=== PATIENT | male | born 1990 | race Two or more races ===

== ENCOUNTER 2024-09-16 00:02 | Observation (INO) | payer MEDICAID, SELFPAY ==
[2024-09-16] VITALS (9 sets, daily range): BP systolic 118–158; BP diastolic 77–105; PULSE 69–115; RESP 13–22; TEMP 36.6–37.1; O2SAT 93–100; BMI 29.7; BMI 27.4
--- NOTE | 2024-09-16 00:26 | PC.NURSE ---
0025 called poison control. Pt should be monitored for 12 hrs. most common effect is GI upset. others are prolonged QCT and sz.. aware..
--- NOTE | 2024-09-16 00:45 | PC.NURSE ---
PATIENT STATES TAKING 20-30 PILLS OF LEXAPRO 20MG PATIENT STATES HE WAS DARED BY FRIENDS TO TAKE PILLS AND THEY PAID HIM $100 DENIES SI AT THIS TIME
--- NOTE | 2024-09-16 01:26 | EKG_ITS ---
[facility] Test Date: 2024-09-16 Pat Name: ESTHER SHAIKH Department: Room: - Gender: Male Manager Of Project Management: PATSY : 1990 Requested By: Rudy Gant Order Number: [id number] Reading MD: Rudy Gant Measurements Intervals [place] Rate: 84 P: 48 UT: 159 QRS: -31 QRSD: 109 T: 42 QT: 408 QTc: 485 Interpretive Statements SINUS RHYTHM MARKED LEFT AXIS DEVIATION NONSPECIFIC T-WAVE ABNORMALITY No previous ECG available for comparison /[id number]
--- NOTE | 2024-09-16 01:34 | PD.EDOVER ---
ED Overdose RME/HPI General Chief Complaint: Overdose Stated Complaint: OD on 30 20 mg lexapro Time Seen by Provider: 09/16/24 00:17 Arrival date/time: 09/16/24 00:02 RME / HPI RME / HPI Narrative: Dr. Thorpe?s Main ED Evaluation: 34yo male presents to the ED for a chief complaint of an overdose. Patient states he took 15 tablets of Lexapro 20mg at 2300 after he was dared to for $100. Patient states he took the tablets after he looked up side effects, stating they didn't look too bad . He is actively vomiting at the time of my evaluation. He states the medication he took was his own prescription. He denies any alcohol use. Denies any SI. No known allergies. Related Data Previous Rx's ?Medication ?Instructions ?Recorded Sulfamethoxazole/Trimethoprim DS * 1 tab PO BID #20 tabs 06/01/17 (BACTRIM DS *) naproxen 375 mg tablet 375 mg PO BIDWM PRN pain #25 tabs 06/01/17 Allergies Allergy/AdvReac Type Severity Reaction Status Date / Time No Known Allergies Allergy Verified 09/16/24 00:11 Review of Systems Review of Systems Systems Reviewed: All systems reviewed, normal except as documented Past Medical History Past Medical History CARDIAC: Negative Congestive Heart Failure RESPIRATORY: Negative Chronic Obstructive Pulmonary Disease (COPD) GENITOURINARY: Negative Renal Disease ENDOCRINE: Negative Diabetes Mellitus Type 1 or Diabetes Mellitus Type 2 PSYCHO/SOCIAL: Positive Bipolar Disorder Social History SMOKING STATUS: Never smoker ED Exam Narrative Physical exam: GENERAL APPEARANCE: alert and oriented x 4, well-developed, well-nourished, actively vomiting, no acute distress VITALS: All vitals were reviewed and the pulse ox is 97% on room air, which is normal according to my interpretation. HEENT: Normocephalic, atraumatic; pupils equal, round, reactive to light; EOMI; mucous membranes pink, moist; oropharynx clear NECK: Supple LUNGS: CTABL; no wheezes, no rales, no rhonchi HEART: Tachycardic, regular rhythm; normal S1, S2; no murmurs ABDOMEN: non distended; normal BS; soft, no tenderness, no guarding, no rebound; no masses, no organomegaly, no hernia BACK: no CVA tenderness EXTREMITIES: atraumatic; no edema; hyperreflexia, clonus NEUROLOGIC: awake; alert and oriented x4; cranial nerves II-XII grossly intact; no focal sensory or motor deficits PSYCHIATRIC: slightly agitated mood and affect SKIN: warm, clammy, flushed; no rashes Course Quality Measures none Orders Category Date Time Status Bedside Blood Glucose NOW Care 09/16/24 01:26 Active University Lecturer NOW Care 09/16/24 01:27 Active Continuous Pulse Oximetry NOW Care 09/16/24 01:26 Completed EKG (ED ONLY) *Do not use* NOW Care 09/16/24 01:27 Completed Insert IV NOW Care 09/16/24 01:27 Active NPO NOW Care 09/16/24 01:26 Active One-to-one observation NOW Care 09/16/24 01:26 Active Suicide precautions NOW Care 09/16/24 01:26 Active EKG (ED Only) Stat Exams 09/16/24 01:26 Ordered Acetaminophen Stat Lab 09/16/24 01:36 Completed Alcohol, Blood Medical Stat Lab 09/16/24 01:36 Completed Alcohol, Urine Stat Lab 09/16/24 02:05 Completed CBC Stat Lab 09/16/24 01:36 Completed Comprehensive Metabolic Panel Stat Lab 09/16/24 01:36 Completed Drug Screen,Urine Stat Lab 09/16/24 02:05 Completed Salicylate Stat Lab 09/16/24 01:36 Completed Thyroid Stimulating Hormone Stat Lab 09/16/24 01:36 Completed Urinalysis Stat Lab 09/16/24 02:05 Completed Urinalysis, C/S if Indicated Stat Lab 09/16/24 02:05 Completed LORazepam [Ativan Inj] Med 09/16/24 01:34 Discontinued 2 mg IVP X1 ONE Magnesium Sulfate 2 GM Ivpb [Magnesium Sulfate Ivpb] Med 09/16/24 01:29 Discontinued 2 gm in 50 ml IV X1 Sodium Chloride 0.9% 1000 ml [Ns] 1,000 ml Med 09/16/24 01:26 Discontinued IV 999 mls/hr Sodium Chloride 0.9% 1000 ml [Ns] 1,000 ml Med 09/16/24 01:34 Discontinued IV 999 mls/hr Vital Signs Vital signs: Vital Signs Temperature 98.3 F 09/16/24 00:21 Pulse Rate 115 H 09/16/24 00:21 Respiratory Rate 18 09/16/24 00:21 Blood Pressure 125/82 09/16/24 00:21 Pulse Oximetry (%) 97 09/16/24 00:21 Oxygen Delivery Method Room Air 09/16/24 00:21 Overdose MDM Narrative MDM Narrative:: Scribe Attestation: 09/16/24 - Kylah Santiago am scribing for and in the presence of Dr. Thorpe. Patient data External records reviewed:: [facility] previous records (Per chart review, patient has no relevant previous ED visits.) Clinical information provided by:: patient Social determinants that could affect healthcare access:: substance use Patient has the following chronic illnesses:: bipolar disorder How is presenting disease/condition affected by chronic disease/condition?: uneffected by Evaluation data The following diagnostics were reviewed and interpreted by me:: lab results and EKG tracing(s) Lab and/or radiology exams considered but not ordered:: none Interpretation Summary: CBC is normal, CMP is normal, TSH is normal, UA shows 1+ protein, UDS is positive for methamphetamines, Salicylates are negative, Acetaminophen is negative, Blood Alcohol is negative, according to my interpretation. EKG done at 0034, sinus tachycardia, rate of 121, left axis deviation, generalized ST abnormalities, no STEMI, QTc: 446, QRS: 106, according to my interpretation. Medications / Prescriptions Medications or Prescriptions considered but not ordered:: none Medication administrations:: Medication Administration History Discontinued Medications Sodium Chloride (Ns) 1,000 mls @ 999 mls/hr IV .Q1H1M AMY Stop: 09/16/24 02:26 Last Infusion: 09/16/24 03:00 Dose: Infused Documented By: Admin: 09/16/24 01:59 Dose: 999 mls/hr Documented By: EF Magnesium Sulfate (Magnesium Sulfate Ivpb) 2 gm in 50 mls @ 25 mls/hr IV X1 ONE Stop: 09/16/24 03:28 Last Admin: 09/16/24 02:08 Dose: 25 mls/hr Documented By: EF Sodium Chloride (Ns) 1,000 mls @ 999 mls/hr IV .Q1H1M ONE Stop: 09/16/24 02:34 Last Infusion: 09/16/24 03:01 Dose: Infused Documented By: Admin: 09/16/24 02:00 Dose: 999 mls/hr Documented By: EF Lorazepam (Lorazepam 2 Mg/Ml Vial) 2 mg IVP X1 ONE Stop: 09/16/24 01:35 Last Admin: 09/16/24 03:25 Dose: Not Given Documented By: EF Non-Admin Reason: Patient Asleep see above Consultations Consultation(s) initiated? (list below): Yes Consultation #1 (Physician, Specialty, Details): Discussed case with [Dr. Wong, attending Dr. Solano] from Hospitalist service regarding admission. Discussed patients ED course, exam findings, labs, and radiology results. The Hospitalist [agrees] to accept the patient for admission. Time: 03:30 Diagnosis Overdose Differential Diagnosis: drug overdose and other (methamphetamine overdose, alcohol withdrawal, benzodiazepine withdrawal, serotonin syndrome) Most likely diagnosis given after review of the tests above:: see clinical impression below Admission Indicated Admission indicated?: indicated Admission Request Was there a request for admission?: Yes Admission Attestation Admission request attestation: Discussed case with [] from Hospitalist service regarding admission. Discussed patients ED course, exam findings, labs, and radiology results. The Hospitalist [agrees,declines] to accept the patient for admission. Disposition Plan Disposition Plan: Admit Critical Care Time Critical Care Time Critical Care Time: Yes Total Critical Care Time (min.): 40 Attestation: The high probability of sudden, clinically significant deterioration in the patient?s condition required the highest level of my preparedness to intervene urgently. The services I provided to this patient were to treat and/or prevent clinically significant deterioration. Services included the following: chart data review, reviewing nursing notes and/or old charts, documentation time, clinical consultant collaboration regarding findings and treatment options, medication orders and management, direct patient care, vital sign assessments and ordering, interpreting and reviewing diagnostic studies and lab tests. Aggregate critical care time includes only time during which I was engaged in work directly related to the patient?s care, as described above, whether at bedside or elsewhere in the Emergency Department. It did not include time spent performing other reported procedures or the services of residents, students, nurses or physician assistants. Discharge Plan Plan Patient Disposition: Admit Acute Care w/in Hospital Prescriptions/Referrals Prescriptions/Med Rec: No Action naproxen 375 MG tablet 375 mg PO BIDWM PRN (Reason: pain) Qty: 25 0RF Sulfamethoxazole/Trimethoprim DS * (BACTRIM DS *) 1 TAB tablet 1 tab PO BID Qty: 20 0RF Referrals: Neeraj Haynes MD [Primary Care Provider] - In 1 week Problem List Clinical Impression: Serotonin syndrome, Methamphetamine abuse Patient/Caregiver Discharge Instructions Print Language: Bulgarian Stand Alone Forms: [facility] Award Info., Patient Portal Info Letter
[2024-09-16 01:53] LABS: Basophils % (Auto) 1 % (0-2.5); Eosinophils # (Auto) 0.2 Thou/mm3 (0.0-0.5); Eosinophils % (Auto) 3 % (0-10); Hematocrit 43.8 % (41.0-53.0); Hemoglobin 15.2 g/dL (13.5-16.0); Immature Granulocytes % (Auto) 0 % (0-0); Immature Granulocytes Auto 0.01 Thou/mm3 (0.00-0.00); Lymphocytes # (Auto) 1.7 Thou/mm3 (1.0-4.8); Lymphocytes % (Auto) 21 % (10-50); Mean Corpuscular HGB Conc 34.7 g/dl (31.0-37.0); Mean Corpuscular Hemoglobin 28.7 pg (25.0-35.0); Mean Corpuscular Volume 83 fL (80-100); Monocytes # (Auto) 0.9 Thou/mm3 (0.0-0.8); Monocytes % (Auto) 11 % (0-12); Neutrophils # (Auto) 5.3 Thou/mm3 (1.8-7.7); Neutrophils % (Auto) 65 % (37-80); Nucleated Red Blood Cell % 0 /100 WBC (0); Platelet Count 387 Thou/mm3 (140-440); RDW Standard Deviation 37.4 fL (35.1-43.9); White Blood Count 8.1 Thou/mm3 (3.8-10.6)
[2024-09-16] MEDS: SODIUM CHLORIDE 0.9% 1000 ML 1,000 ML 999 ML IV ×2 (01:59→02:00)
[2024-09-16] MEDS: Magnesium Sulfate 2 GM Ivpb 2 GM/50 ML BAG IV (02:08)
[2024-09-16 02:12] LABS: Collection Type, Urine Clean Catch
[2024-09-16 02:18] LABS: Bilirubin,Urine Negative (Negative); Blood,Urine Negative (Negative); Clarity,Urine Clear (Clear/Hazy); Color,Urine Yellow (Lt Yel-Yel); Culture Indicated,Urine Not Indicated; Glucose, Urine Negative (Negative); Ketones,Urine Negative (Negative); Leukocyte Esterase,Urine Negative (Negative); Nitrite,Urine Negative (Negative); Protein,Urine 1+ (Neg - Trace); RBC,Urine 2 /hpf (0-3); Specific Gravity,Urine 1.034 (1.001-1.035); Squamous Epithelial Cell,Urine < 1 /hpf (0-5); Urobilinogen,Urine Negative mg/dL (0.0-1.0); WBC,Urine 1 /hpf (0-5)
[2024-09-16 02:30] LABS: Alcohol, Urine Negative (Negative); Amphetamine/Methamp Scrn,U Positive (Negative); Barbiturate Screen,Urine Negative (Negative); Benzodiazepines Screen,Urine Negative (Negative); Benzoylecgonine Screen, Ur Negative (Negative); Fentanyl Screen,Urine Negative (Negative); Opiate Screen,Urine Negative (Negative); THC Screen,Urine Negative (Negative)
[2024-09-16 02:31] LABS: Acetaminophen < 2.0 mcg/mL (10.0-20.0); Alanine Aminotransferase 31 U/L (10-49); Albumin, Serum 5.4 gm/dL (3.5-5.0); Albumin/Globulin Ratio 1.8 (1.2-2.2); Alcohol, Blood Medical < 3.0 mg/dL (0-10.0); Alkaline Phosphatase 117 U/L (46-116); Anion Gap 13 (7-16); Aspartate Amino Transferase 31 U/L (0-34); BUN/Creatinine Ratio 17 Ratio (12-20); Bilirubin,Total 0.9 mg/dL (0.3-1.2); Blood Urea Nitrogen 17 mg/dL (9-23); Calcium 10.5 mg/dL (8.3-10.6); Calcium (Corrected) 10.5 mg/dL (8.5-10.1); Carbon Dioxide 24.4 mMol/L (20.0-31.0); Chloride 106 mMol/L (98-107); Estimated Creatinine Clearance 133.1 mL/min (>60); Glucose 100 mg/dL (74-106); Osmolality,Calculated 286 (275-295); Potassium 3.8 mMol/L (3.4-5.1); Salicylate < 3.0 mg/dL; Sodium 143 mMol/L (136-145); Total Protein 8.4 gm/dL (5.7-8.2); eGFR > 60 See Note
--- NOTE | 2024-09-16 04:42 | ESHP_ITS ---
Documentation for date of: 09/16/24 HPI History of Present Illness Chief complaint: Lexapro OD History of present illness: Kaleb Campbell is 34 yr male with PMH of bipolar disorder and meth abuse who presented to ED after ingesting 15-30(?) tablets of Lexapro around 11pm last night. Most history was obtained from chart review as patient was only oriented to self, lethargic, and unable to focuse with bizarre behavior. Per ED, patient's friend offered him 100$ to eat all his Lexapro. Initially he was vomiting at bedside. Poison control was contacted who recommended to observe patient for 12 hrs and reasses mental status. Lorazepam PRN for any seizure like activity or agitation. No seizures have been witnessed as of yet. It is difficult to asses at this time if OD was suicide attempt or if any attempts have been made in the past. Vitals significant for tachycardia 115, hypertension 130/90, non febrile. Labs unremarkable. Utox positive for methamphetamine. Patient received x2 1L bolus NS and Mg 2 gm in ED. visitor services associate has been consulted and patient admitted for observation and management of OD. PMH: as noted above PSH: unknown FamHx: unknown Social: history of meth use Allergies: unknown Meds: Lexapro 20 mg, bupreorphine (med rec pending) Review of Systems Review of Systems ROS Unobtainable: unobtainable due to mental status and unobtainable due to medical condition Exam Vital Signs Temp Pulse Resp BP Pulse Ox O2 Del Method 98.6 F 107 H 19 147/97 H 98 Room Air 09/16/24 01:43 09/16/24 01:43 09/16/24 01:43 09/16/24 01:43 09/16/24 01:43 09/16/24 01:43 Narrative Exam General: Bizarre behavior, oriented to self only, slurred speech, continuously moving in his bed. HEENT: NCAT, No JVD noted. Pupils are dilated and nonreactive to light. Cardiovascular: Normal S1 and S2. Regular rate and rhythm. Respiratory: Unable to assess Abdomen: Soft, nontender, not distended, normal bowel sounds. Skin: Warm to touch, dry, no rashes noted, diaphoretic Musculoskeletal: No gross injuries. Able to move all 4 extremities. No pitting edema, continued restlness/jerking movements of b/L LE Neuro: eye uprolling, unable to focus on one spot, could not assess otherwise. Psych: unable to assess Results: Labs 09/16/24 04:54 09/16/24 04:54 Labs: Short CBC 09/16/24 Range/Units 01:36 WBC 8.1 (3.8-10.6) Thou/mm3 Hgb 15.2 (13.5-16.0) g/dL Hct 43.8 (41.0-53.0) % Plt Count 387 (140-440) Thou/mm3 BMP 09/16/24 01:36 Sodium 143 Potassium 3.8 Chloride 106 Carbon Dioxide 24.4 BUN 17 Creatinine 1.0 Glucose 100 Calcium 10.5 Liver Function 09/16/24 Range/Units 01:36 Total Bilirubin 0.9 (0.3-1.2) mg/dL AST 31 (0-34) U/L ALT 31 (10-49) U/L Alkaline Phosphatase 117 H (46-116) U/L Albumin 5.4 H (3.5-5.0) gm/dL Urine 09/16/24 Range/Units 02:05 Urine Color Yellow (Lt Yel-Yel) Urine Clarity Clear (Clear/Hazy) Urine pH 6.0 (5.0-7.0) Ur Specific [place] 1.034 (1.001-1.035) Urine Protein 1+ A (Neg - Trace) Urine Glucose (UA) Negative (Negative) Quality Measures Quality Measures none Medications Home Medications and Allergies Home Medications ?Medication ?Instructions ?Recorded ?Confirmed ?Type buprenorphine 12 mg-naloxone 3 mg 1 film buccal Q24H w ithdrawl 09/16/24 09/16/24 History sublingual film escitalopram oxalate 20 mg tablet 20 mg PO QDAY 09/16/24 History (Lexapro) Held on 09/16/24. Instructions: Resume on 09/23/24. Hold for one week, follow up with PCP/Psychiatry before resuming. Allergies Allergy/AdvReac Type Severity Reaction Status Date / Time No Known Allergies Allergy Verified 09/16/24 00:11 Visit Medications Acetaminophen (Acetaminophen 325 Mg Tablet) 650 mg PO Q6H PRN PRN Reason: Fever >100.3 or pain Stop: 10/16/24 04:31 Enoxaparin Sodium (Enoxaparin Sod Inj 40 Mg/0.4 Ml Syringe) 40 mg SC QDAY AMY Stop: 09/30/24 08:59 Discontinued Medications Sodium Chloride (Ns) 1,000 mls @ 999 mls/hr IV .Q1H1M AMY Stop: 09/16/24 02:26 Last Infusion: 09/16/24 03:00 Dose: Infused Magnesium Sulfate (Magnesium Sulfate Ivpb) 2 gm in 50 mls @ 25 mls/hr IV X1 ONE Stop: 09/16/24 03:28 Last Infusion: 09/16/24 04:08 Dose: Infused Sodium Chloride (Ns) 1,000 mls @ 999 mls/hr IV .Q1H1M ONE Stop: 09/16/24 02:34 Last Infusion: 09/16/24 03:01 Dose: Infused Lorazepam (Lorazepam 2 Mg/Ml Vial) 2 mg IVP X1 ONE Stop: 09/16/24 01:35 Last Admin: 09/16/24 03:25 Dose: Not Given Assessment & Plan Plan Kaleb Campbell is 34 yr male with PMH of bipolar disorder and meth abuse who presented to ED after ingesting 15-30(?) tablets of Lexapro around 11pm last night. Most history was obtained from chart review as patient was only oriented to self, lethargic, and unable to focuse with bizarre behavior. Per ED, patient's friend offered him 100$ to eat all his Lexapro. It is difficult to asses at this time if OD was suicide attempt or if any attempts have been made in the past. visitor services associate has been consulted and patient admitted for observation and management of OD. #Intentional drug overdose with Lexapro #Possible suicide attempt #Methamphetamine abuse Vitals significant for tachycardia 115, hypertension 130/90, non febrile. Labs unremarkable. Utox positive for methamphetamine. Poison control was contacted who recommended to observe patient for 12 hrs and reasses mental status. -Continue monitoring for any possible seizures ?Lorazepam 2 mg IV Q4 HR as needed for agitation or breakthrough seizure ?IV fluids NS 100 cc/h -Follow-up CK ? N.p.o. ? One-on-one observation/sitter ? Seizure precautions -Pending secondary social studies teacher recommendation -Frequent neurochecks #History of bipolar disorder -Hold all medications -Psychiatry follow-up Health maintenance: Dispo: med tele, OD vs suicide attempt DVT prophylaxis: Lovenox CODE STATUS: Full code Diet: NPO The patient's management plan was discussed with my attending physician Dr. Solano. Shasha Horton, PGY-1 Attending Provider Attestation/Addendum I attest that I was physically present for the evaluation, physical examination, lab and imaging review of the patient with the residents. I discussed the case with the residents and agree with the findings and plans of care as documented above. Patient is a 34 years old male with past medical history of bipolar disorder and methamphetamine abuse who presented to the ED after intentional ingestion of around 15 tablets of Lexapro. At bedside, patient appears sleepy but shows bizarre behavior with constant movement of his lower limbs, was unable to focus on questions and unable to answer questions appropriately. From chart review, patient's friend dared him to take multiple tablets of Lexapro for money. Patient started having vomiting and decided to visit the ED. In the ED, he had a pulse of 102, blood pressure 140s systolic, respiratory rate 19, normal temperature. Toxicology was positive for methamphetamines. Rest of the vitals were nonconcerning. His pupils were dilated, unable to assess reflex. Could not appreciate clonus. Discussed with poison control on phone, they stated that patient likely does not have serotonin syndrome but recommended to observe patient for 12 hours and closely observe for changes in symptoms and mental status. We will admit the patient on observation for intentional drug overdose. Will start him on IV hydration, keep him n.p.o., seizure and aspiration precautions. We will start him on lorazepam as needed for agitation and breakthrough seizure. We will monitor closely for any symptoms of serotonin syndrome or withdrawal from illicit drugs. Unable to obtain proper history if patient is suicidal, may need crisis evaluation before discharge. Fatou Solano MD
[2024-09-16 05:07] LABS: Basophils % (Auto) 0 % (0-2.5); Eosinophils # (Auto) 0.2 Thou/mm3 (0.0-0.5); Eosinophils % (Auto) 2 % (0-10); Hemoglobin 13.4 g/dL (13.5-16.0); Immature Granulocytes % (Auto) 0 % (0-0); Immature Granulocytes Auto 0.01 Thou/mm3 (0.00-0.00); Lymphocytes # (Auto) 1.6 Thou/mm3 (1.0-4.8); Lymphocytes % (Auto) 22 % (10-50); Mean Corpuscular HGB Conc 35.3 g/dl (31.0-37.0); Mean Corpuscular Hemoglobin 29.2 pg (25.0-35.0); Mean Corpuscular Volume 83 fL (80-100); Monocytes # (Auto) 0.7 Thou/mm3 (0.0-0.8); Monocytes % (Auto) 10 % (0-12); Neutrophils # (Auto) 4.5 Thou/mm3 (1.8-7.7); Neutrophils % (Auto) 65 % (37-80); Nucleated Red Blood Cell % 0 /100 WBC (0); Platelet Count 288 Thou/mm3 (140-440); RDW Standard Deviation 37.5 fL (35.1-43.9); Red Blood Count 4.59 Miln/mm3 (4.50-5.90)
[2024-09-16 05:41] LABS: Alanine Aminotransferase 24 U/L (10-49); Albumin, Serum 4.3 gm/dL (3.5-5.0); Alkaline Phosphatase 92 U/L (46-116); Anion Gap 8 (7-16); Aspartate Amino Transferase 25 U/L (0-34); BUN/Creatinine Ratio 20 Ratio (12-20); Bilirubin,Total 0.8 mg/dL (0.3-1.2); Blood Urea Nitrogen 14 mg/dL (9-23); Calcium 8.8 mg/dL (8.3-10.6); Calcium (Corrected) 8.8 mg/dL (8.5-10.1); Carbon Dioxide 25.1 mMol/L (20.0-31.0); Chloride 110 mMol/L (98-107); Creatine Kinase 958 U/L (34-171); Creatinine (Component) 0.7 mg/dL (0.6-1.3); Estimated Creatinine Clearance 190.2 mL/min (>60); Globulin 2.2 gm/dL (2.3-3.5); Glucose 104 mg/dL (74-106); Magnesium 2.4 mg/dL (1.6-2.6); Osmolality,Calculated 285 (275-295); Phosphorous 4.4 mg/dL (2.4-5.1); Sodium 143 mMol/L (136-145); Total Protein 6.5 gm/dL (5.7-8.2); eGFR > 60 See Note
--- NOTE | 2024-09-16 08:40 | PC.NURSE ---
@0840am- Pt explaining that he plans to leave and will not be staying here. I explain to patient that he needs to be medically cleared and the Doctors would be rounding soon. Pt states that he needs his Suboxone and that he needs to leave NOW. I explained I would call the Doctor and ask for the team to come to bedside to explain POC and clearance requirements. Doctor notified and state they will be at bedside shortly. Patient agrees to wait for Doctors. Home medication reconciled including the Suboxone.
[2024-09-16] MEDS: BUPRENORPHINE NALOXONE SL (09:00)
--- NOTE | 2024-09-16 09:07 | PC.NURSE ---
0845- Doctor at bedside with NEW order to administer NOW the Suboxone and order for EKG stat. Pending reccomendations for discharge, patient is aware. Medication Suboxone taken to pharmacy. Psychologist Research Assistant Froilan verifying HOLD status
--- NOTE | 2024-09-16 09:10 | PC.SS ---
DIRECT CARE PROFESSIONAL confirmed with supervisor trust accounts that the patient does not possess a 5150 hold. Patient has been medically cleared for psych evaluation. DIRECT CARE PROFESSIONAL confirmed that ED coordinator will assess the patient. Patient remains in possession of 1:1 sitter. Charge nurse provided update.
--- NOTE | 2024-09-16 10:11 | PC.SS ---
ASW contacted by medical team for mental health evaluation. ASW met with patient to complete evaluation. Patient informed of role and reason for contact. Patient appeared alert and oriented to person, place and situation. Patient informed of limits of confidentiality. Patient able to engage in evaluation and answer questions appropriately. Patient informed what brought him into the ED was because he took 15 pills of Lexapro medication. Patient informs he is prescribed the medication by [facility] for ADD/Anxiety with provider . The patient informs he took that many pills because his friend offered to pay him money; $100 per every two pills taken. Patient informs he researched on the internet what consuming this many pills would do and stated it said it wasn't lethal and only symptoms is severe vomiting . Patient denies that the overdose was intentional informs he wanted to get payed from his friend. Patient reports he is aware his behavior was stupid and stated once he felt his stomach feel sick he asked his friend to take him to the ED. Patient was admitted for further monitoring. Today the patient is denying SI and HI. Patient also denies audio and visual hallucination. Patient informs he has not been on a psychiatric hold in the past. Patient informs he has history of meth use, aware his toxicology is positive for meth. Patient reports living along at confirmed address on face sheet. Patient assigned his sister as his emergency contact. Jacquie . Patient reports being independent with ADL's, no use of DME reported. Patient informs his PCP is provider [facility] with [facility]. Patient reports being connected to [facility] for services. Patient agreeable to continue with their services. Patient informs he would be receptive to resources and would be willing to safety plan if necessary. Patient reports having adequate support from family and friends. Patient was provided with psychoeducaion of the severity of his behavior and patient verbalized understanding. After clinical consultation with care director of product development, Aleja Lambert LCSW decision was made that the patient does not meet criteria for 5150 hold, however could be cleared with a safety plan. Patient was receptive and agreeable to participating in a safety plan with his mother, Mis Campbell . ASW spoke with patient's mother regarding the situation and concerns for patient's behavior. Mother was agreeable to safety plan and provide support to the patient for the next 72 hrs. Patient to follow up with mental health services and was provided resources including crisis contact information, mental health and substance use resources and local authorities information for emergency needs. Patient's friend, Kaleb Berger to provide transportation as the patient's mother is unable to roller picker the patient due to babysitting duties. Patient to be discharging to mother's home. Patient's missed today's appointment with [facility] sample case porter due to bieng in the hospital, however is scheduled for follow up appointment with his therapist Alexis Brown for 10/06/24. ASW updated medical team and bed side nurse on safety plan for discharge.
--- NOTE | 2024-09-16 12:04 | ESDS_ITS ---
<Statement entered by Nandini Colon MD - 09/24/24 09:20> I reviewed above note and agree with findings and plans. I have also personally examined the patient with medicine team and went over assessment and plan with medical team including psychology intern and resident physician. Planned Discharge Date 09/16/24 DS: Providers Provider Date of admission: 09/16/24 04:32 Primary care physician: Neeraj Haynes MD Admitting Provider: Fatou Solano MD Attending Provider on Admission: Nandini Colon MD Consults: 09/16/24 08:56 Referral Psych Eval Routine Comment: Attending Provider on DC: Nandini Colon MD Discharging Provider: Nandini Colon MD Anticipated date of discharge: 09/16/24 DS: Diagnosis Problem List Completed Was Problem List Reviewed/Reconciled?: Yes Hospital Course Hospital Course Hospital course: Hospital course: Mr. Campbell is a 34-year-old male with past medical history of bipolar disorder, methamphetamine use and ?Fentanyl use who presented to [facility] emergency department on 09/16/2024 with a chief complaint of intentional overdose of Lexapro. On presentation patient reported that he ingested about 15 to 30 tablets of Lexapro after patient's friend offered him around $100 to consume all his Lexapro. Patient on presentation was lethargic and had bizarre behavior, Poison control was contacted who recommended to observe the patient. Hence patient was admitted for observation, EKG on presentation showed sinus tachycardia and QTc around 460, repeat EKG this morning showed a QTc of 485, patient denied any suicidal ideation, reported that he has no thoughts of suicidal or homicidal ideations, patients magnesium was maintained more than 2, patient was given magnesium oxide 400 mg x 1. Patient insisted on discharge in a.m., labs were stable in a.m. but considering patient's prolonged QT patient was counseled on hazards of QT prolongation, was counseled on not to take Lexapro for at least a week and take magnesium oxide 400 mg twice daily for a week, follow-up with primary care physician repeat EKG before resuming Lexapro. Patient verbalized understanding, crisis eval done by social media campaign manager. Patient had a safety plan and was eventually found to be not suicidal hence patient was discharged home, patient to follow-up in 1 week with primary care physician. Patient verbalized understanding, patient is stable for discharge. Discharge Diagnoses: #SSRI overdose, intentional #QTc prolongation #Rule out serotonin syndrome #Ruled out suicidal ideation #Bipolar disorder #Methamphetamine use #Suboxone dependence Case discussed with Attending Dr. Colon. Marybeth Botello PGY1 Disclaimer: This note was dictated by speech recognition. Minor errors in coffee urn attendant may be present due to voice recognition software. Status at Discharge Functional status at discharge: independent ambulation Overall status at discharge: patient is back to baseline Time Spent with Patient Time attestation: Total time spent providing and/or coordinating discharge services: Exam Vital Signs Temp Pulse Resp BP Pulse Ox O2 Del Method 97.8 F 90 13 158/101 H 100 Room Air 09/16/24 08:00 09/16/24 08:00 09/16/24 08:00 09/16/24 08:00 09/16/24 08:00 09/16/24 08:00 Narrative Exam Physical Exam General: Awake and in no acute distress. Conversational and non-toxic appearing. HEENT: Normocephalic, atraumatic, mucous membranes moist. Heart: Regular rate and rhythm, no murmurs. Lungs: Clear to auscultation with no wheezing or crackles. Abdomen: Soft, nondistended, nontender, positive bowel sounds. ?No guarding or rebound tenderness. Neurologic: Alert and oriented x3, no gross neurological deficit, and patient able to move all 4 extremities. Extremities: No edema. Skin: No rash or ecchymoses. Discharge Plan Plan Patient Disposition: HOME (Self Care) Patient condition on transfer: Stable Care Plan Goals: Follow up with PCP/Psychiatry in 1 week. Take Magnesium Oxide 400mg BID for 1 week. Repeat EKG in 1 week outpatient. Follow up with your mental health appointment. Return to ED if sypmtoms worsen. Prescriptions/Referrals Prescriptions/Med Rec: New magnesium oxide 400 mg magnesium capsule 400 mg PO BID Qty: 20 0RF Continued buprenorphine-naloxone 12-3 mg film 1 film BUCCAL Q24H Patient Comments: DISSOLVE ONE film BY MOUTH EVERY DAY without chewing OR swallowing Held escitalopram oxalate [Lexapro] 20 mg tablet 20 mg PO QDAY Hold Instructions: Resume on 09/23/24. Hold for one week, follow up with PCP/Psychiatry before resuming. Discontinued naproxen 375 MG tablet 375 mg PO BIDWM PRN (Reason: pain) Qty: 25 0RF Sulfamethoxazole/Trimethoprim DS * (BACTRIM DS *) 1 TAB tablet 1 tab PO BID Qty: 20 0RF Referrals: Neeraj Haynes MD [Primary Care Provider] - Patient/Caregiver Discharge Instructions Discharge Activity: activity as tolerated Education Materials: ED Overdose, Intentional (Adult) Print Language: Urdu Stand Alone Forms: Blessing Award Info., Patient Portal Info Letter, Work/Release Restrictions Discharge Order Discharge Orders: Discharge (Routine); Ordered 09/16/24 Ordered By: Marybeth Botello Quality Discharge Quality Measures VTE prophylaxis
== END 2024-09-16 10:00 | disposition home or self-care (01) ==
LOC: SERX 03:32 → SERHOLD 05:32 → S2NX 08:00
PROVIDERS: Admitting Provider Student in an Organized Health Care Education/Training Program; Emergency Provider Emergency Medicine; PCP Family Medicine; Visit Provider Internal Medicine
DX: T43.222A Poisoning by selective serotonin reuptake inhibitors, intentional self-harm, initial encounter (principal); F31.9 Bipolar disorder, unspecified; F15.10 Other stimulant abuse, uncomplicated; I10 Essential (primary) hypertension; F11.20 Opioid dependence, uncomplicated; Z01.810 Encounter for preprocedural cardiovascular examination
CPT/HCPCS: 36415; 80053; 80069; 80307; 80320; 80329; 81001; 82550; 83735; 84100; 84443; 85025; 93005; 96127; 96365; 96366; 99291; G0378; J3475; J7030; G0480

== ENCOUNTER 2025-03-18 21:35 | Emergency (ER) | payer MEDICAID, SELFPAY ==
[2025-03-18 21:36] VITALS: BMI 26.4
[2025-03-18 22:40] VITALS: BP 148/85; PULSE 85; RESP 20; TEMP 36.9; O2SAT 99
--- NOTE | 2025-03-18 22:54 | EDNOTE_ITS ---
ED SOB =RME/HPI General Chief Complaint: Shortness of Breath/Dyspnea Stated Complaint: TOOK METHADONE WITH SUBOXONE, SOB Time Seen by Provider: 03/18/25 22:41 Arrival date/time: 03/18/25 21:35 34M with history of drug use presents to ED with generalized body pain and some SOB after he took methadone with suboxone. Limitations: no limitations Related Data Home Medications ?Medication ?Instructions ?Recorded ?Confirmed buprenorphine 12 mg-naloxone 3 mg 1 film buccal Q24H w ithdrawl 09/16/24 09/16/24 sublingual film escitalopram oxalate 20 mg tablet 20 mg PO QDAY 09/16/24 (Lexapro) Held on 09/16/24. Instructions: Resume on 09/23/24. Hold for one week, follow up with PCP/Psychiatry before resuming. Previous Rx's ?Medication ?Instructions ?Recorded magnesium oxide 400 mg PO BID #20 caps 09/16 Allergies Allergy/AdvReac Type Severity Reaction Status Date / Time No Known Allergies Allergy Verified 09/16/24 00:11 Review of Systems Review of Systems Systems Reviewed: All systems reviewed, normal except as documented Cardiovascular Cardiovascular: Reports dyspnea Respiratory Respiratory: Reports as per HPI and Reports dyspnea Past Medical History Past Medical History CARDIAC: Negative Congestive Heart Failure RESPIRATORY: Negative Chronic Obstructive Pulmonary Disease (COPD) GENITOURINARY: Negative Renal Disease ENDOCRINE: Negative Diabetes Mellitus Type 1 or Diabetes Mellitus Type 2 PSYCHO/SOCIAL: Positive Recreational Drug Use (Meth use), Bipolar Disorder, Depression and Anxiety Social History SMOKING STATUS: Current every day smoker ED Exam General Limitations: Present no limitations General appearance: Present alert, in no apparent distress and anxious Head Head exam: Present atraumatic Neck Neck exam: Present normal inspection, full ROM and trachea midline Chest Chest inspection: Present normal inspection and symmetric chest wall rise Respiratory Respiratory exam: Present normal lung sounds bilaterally Neurological Exam Neurological exam: Present alert and oriented X3 Psychiatric Psychiatric exam: Present normal affect and anxious Skin Skin exam: Present warm, dry, intact and normal color Course Quality Measures none Orders Category Date Time Status Diazepam [Valium] Med 03/18/25 22:41 Discontinued 10 mg PO X1 ONE Vital Signs Vital signs: Vital Signs Temperature 98.5 F 03/18/25 22:40 Pulse Rate 85 03/18/25 22:40 Respiratory Rate 20 03/18/25 22:40 Blood Pressure 148/85 H 03/18/25 22:40 Pulse Oximetry (%) 99 03/18/25 22:40 Oxygen Delivery Method Room Air 03/18/25 22:40 O2 at 99% on RA and WNLs Shortness of Breath / Dyspnea MDM Narrative MDM Narrative:: 34M with history of drug use presents to ED with generalized body pain and some SOB after he took methadone with suboxone. Physical exam reveals anxious male. Clear lungs. Patient is afebrile and alert. Meds and rehabilitation counselor given. Patient did not want to wait for observation period. Patient data External records reviewed:: [facility] previous records Clinical information provided by:: patient Social determinants that could affect healthcare access:: mental health Patient has the following chronic illnesses:: drug use How is presenting disease/condition affected by chronic disease/condition?: exacerbated by Evaluation data The following diagnostics were reviewed and interpreted by me:: other (specify) (none) Lab and/or radiology exams considered but not ordered:: not ordered Interpretation Summary: n/a Medications / Prescriptions Medications or Prescriptions considered but not ordered:: ordered Medication administrations:: Medication Administration History Discontinued Medications Diazepam (Diazepam 5 Mg Tablet) 10 mg PO X1 ONE Stop: 03/18/25 22:42 Last Admin: 03/18/25 23:17 Dose: 10 mg Documented By: JE above Consultations Consultation(s) initiated? (list below): No Diagnosis Shortness of Breath Differential Diagnosis: acute exacerbation of chronic obstructive airways disease, congestive heart failure, community acquired pneumonia, asthma with exacerbation, pulmonary embolism and other (drug adverse effect) Most likely diagnosis given after review of the tests above:: drug adverse effect Admission Indicated Admission indicated?: not indicated Admission Request Was there a request for admission?: No Disposition Plan Disposition Plan: Discharge Discharge Attestation Discharge Attestation: The patient and all family members were given an opportunity to ask questions and understood the discharge instructions. Discharge instructions specifically effects, indications for sooner follow up or return to the emergency department, and the expected course of current diagnosis. Patient condition: Stable Discharge Plan Plan Patient Disposition: HOME (Self Care) Discharge Disposition comment: Stable Prescriptions/Referrals Prescriptions/Med Rec: No Action buprenorphine-naloxone 12-3 mg film 1 film BUCCAL Q24H Patient Comments: DISSOLVE ONE film BY MOUTH EVERY DAY without chewing OR swallowing escitalopram oxalate [Lexapro] 20 mg tablet 20 mg PO QDAY magnesium oxide 400 mg magnesium capsule 400 mg PO BID Qty: 20 0RF Referrals: No Primary/Family,Physician [Primary Care Provider] - In 1 week Problem List Clinical Impression: Adverse drug effect Patient/Caregiver Discharge Instructions Education Materials: ED Drug Reaction, Other Additional Instructions: Please follow-up with PCP within 24-48 hours and return immediately if symptoms worsen. Don't mix Suboxone with methadone. Print Language: Angolan Stand Alone Forms: Patient Portal Info Letter ELENI/FRAME OPENER Supervising Physician ELENI/ERIC Supervising Physician: Dr. Jacob
[2025-03-18] MEDS: DIAZEPAM 5 MG TABLET 10 MG PO (23:17)
== END 2025-03-18 23:24 | disposition home or self-care (01) ==
PROVIDERS: Emergency Provider Emergency Medicine
DX: R06.02 Shortness of breath (principal); R52 Pain, unspecified; T40.3X5A Adverse effect of methadone, initial encounter; T40.2X5A Adverse effect of other opioids, initial encounter
CPT/HCPCS: 99282; A9270